=== PATIENT | female | born 1990 | race Two or more races ===

== ENCOUNTER 2019-09-21 03:35 | Observation (INO) | payer OTHER ==
[~2019-09-21] VITALS: Ht 152.4 cm; Wt 81.2 kg
[~2019-09-21 03:35] MED LIST: PNV1TABL43 PO
[2019-09-21 04:45] VITALS: BP 117/71
== END 2019-09-21 05:15 | disposition home or self-care (01) ==
LOC: EMS 03:36 → 4S 03:53 → INTOOBSV 03:53 → 4S 05:00
PROVIDERS: ADMIT Obstetrics & Gynecology; ATTEND Obstetrics & Gynecology
DX: O26.893 Other specified pregnancy related conditions, third trimester (principal); R10.9 Unspecified abdominal pain; Z3A.23 23 weeks gestation of pregnancy
CPT/HCPCS: 80307 ×8; 81002; G0378

== ENCOUNTER 2020-02-08 19:32 | Emergency (ER) | payer OTHER ==
[~2020-02-08] VITALS: Ht 180.3 cm; Wt 72.7 kg
[2020-02-08 22:35] LABS: BASOPHILS % (AUTO) 0.3 % (0.0-2.0); EOSINOPHILS % (AUTO) 0.4 % (1.0-6.0); HEMOGLOBIN 10.8 g/dL (12.0-16.0); LYMPHOCYTES # (AUTO) 1.4 K/uL (1.0-4.8); LYMPHOCYTES % (AUTO) 10.4 % (22.0-44.0); MEAN CORPUSCULAR HEMOGLOBIN 25.7 pg (26.0-34.0); MEAN CORPUSCULAR VOLUME 83 fL (80-100); MONOCYTES # (AUTO) 0.4 K/uL (0.1-1.0); MONOCYTES % (AUTO) 3.3 % (2.0-9.0); NEUTROPHILS # (AUTO) 11.5 K/uL (1.8-7.7); PLATELET COUNT (AUTO) 253 K/uL (150-450); RED BLOOD CELL COUNT(AUTO) 4.23 MIL/uL (4.00-5.20)
[2020-02-08 22:40] LABS: NEUTROPHILS % (AUTO) 85.6 % (40.0-70.0)
[2020-02-08 22:51] LABS: ANION GAP 8 mmol/L (8-16); CALCIUM, TOTAL 8.4 mg/dL (8.8-10.5); CARBON DIOXIDE 29 mmol/L (22-29); CHLORIDE 105 mmol/L (98-107); CREATININE 0.65 mg/dL (0.60-1.30); GLOMERULAR FILTR. RATE CALC > 60 mL/min (>60); GLUCOSE,RANDOM 105 mg/dL (70-110); POTASSIUM 3.8 mmol/L (3.5-5.1); SODIUM SERUM 142 mmol/L (136-145); UREA NITROGEN, BLOOD 17 mg/dL (7-18)
[2020-02-08 22:55] LABS: ALANINE AMINOTRANSFERASE 35 U/L (12-78); ALBUMIN 3.5 g/dL (3.4-5.0); ALKALINE PHOSPHATASE 102 U/L (46-116); ASPARTATE AMINOTRANSFERASE 51 U/L (15-37); BILIRUBIN,TOTAL 0.3 mg/dL (0.1-1.0); LIPASE 161 U/L (73-393); TOTAL PROTEIN, SERUM 7.4 g/dL (6.4-8.2)
[2020-02-08 23:46] VITALS: BP 127/62
== END 2020-02-08 23:47 | disposition home or self-care (01) ==
LOC: EMS 19:33
DX: R07.89 Other chest pain (principal); R05 Cough; R19.7 Diarrhea, unspecified
CPT/HCPCS: 93005

== ENCOUNTER 2025-05-13 17:52 | Emergency (ER) | payer OTHER ==
[~2025-05-13] VITALS: Ht 157.5 cm; Wt 75.0 kg
[2025-05-13 17:59] VITALS: TEMP 98.1
[2025-05-13 18:23] LABS: APPEARANCE,URINE CLEAR (CLEAR); BILIRUBIN,URINE NEGATIVE (NEGATIVE); COLOR,URINE YELLOW (YELLOW); GLUCOSE, URINE (UA) NEGATIVE (NEGATIVE); KETONES,URINE NEGATIVE (NEGATIVE); LEUKOCYTE ESTERASE ,URINE SMALL (NEGATIVE); NITRATE,URINE NEGATIVE (NEGATIVE); OCCULT BLOOD,URINE TRACE (NEGATIVE); PROTEIN,URINE NEGATIVE (NEGATIVE); UROBILINOGEN,URINE <=1.0 mg/dL (<=1.0)
[2025-05-13 18:24] LABS: BASOPHILS % (AUTO) 0.1 % (0.0-2.0); EOSINOPHILS % (AUTO) 0.3 % (1.0-6.0); HEMATOCRIT 40.2 % (36-46); HEMOGLOBIN 13.6 g/dL (12.0-16.0); LYMPHOCYTES # (AUTO) 0.5 K/uL (1.0-4.8); LYMPHOCYTES % (AUTO) 5.6 % (22.0-44.0); MEAN CORPUSCULAR HGB CONC 33.9 G/dL (31.0-37.0); MEAN CORPUSCULAR VOLUME 89 fL (80-100); MONOCYTES # (AUTO) 0.4 K/uL (0.1-1.0); MONOCYTES % (AUTO) 4.3 % (2.0-9.0); NEUTROPHILS # (AUTO) 8.4 K/uL (1.8-7.7); PLATELET COUNT (AUTO) 208 K/uL (150-450); RED BLOOD CELL COUNT(AUTO) 4.53 MIL/uL (4.00-5.20); RED CELL DISTRIBUTION WIDTH 13.7 % (11.5-14.5); WHITE BLOOD COUNT (AUTO) 9.3 K/uL (4.5-11.0)
[2025-05-13 18:30] LABS: NEUTROPHILS % (AUTO) 89.7 % (40.0-70.0)
[2025-05-13 18:31] LABS: ANION GAP 4 mmol/L (8-16); CALCIUM, TOTAL 8.3 mg/dL (8.8-10.5); CARBON DIOXIDE 28 mmol/L (22-29); CHLORIDE 105 mmol/L (98-107); CREATININE 0.64 mg/dL (0.60-1.30); GLOMERULAR FILTR. RATE CALC > 60 mL/min (>60); GLUCOSE,RANDOM 97 mg/dL (70-110); POTASSIUM 3.8 mmol/L (3.5-5.1); SODIUM SERUM 137 mmol/L (136-145); UREA NITROGEN, BLOOD 12 mg/dL (7-18)
[2025-05-13 18:41] LABS: BACTERIA,URINE Few /HPF (None Seen); RBC,URINE 0-2 /HPF (0-2); SQUAMOUS EPITHELIAL CELL,UR Few /LPF (None Seen)
[2025-05-13 18:42] LABS: MUCUS,URINE Few LPF (None Seen)
[2025-05-13 18:46] LABS: HCG,QUANTITATIVE < 1 mIU/mL (0-6); LIPASE 28 U/L (16-77)
[2025-05-13 23:18] LABS: ALBUMIN 3.5 g/dL (3.4-5.0); BILIRUBIN,DIRECT 0.1 mg/dL (0.00-0.20); BILIRUBIN,TOTAL 0.6 mg/dL (0.1-1.0)
[2025-05-13] MEDS: ACETAMINOPHEN 500 MG TABLET PO ONE (23:27)
[2025-05-13] MEDS: DICYCLOMINE HCL 10 MG CAPSULE PO ONE (23:27)
[2025-05-13] MEDS: FAMOTIDINE 20 MG TABLET PO ONE (23:27)
[2025-05-14 01:19] VITALS: BP 125/62; PULSE 94; RESP 17; O2SAT 99
== END 2025-05-14 01:24 | disposition home or self-care (01) ==
LOC: EMS 17:52
DX: R10.10 Upper abdominal pain, unspecified (principal); G89.29 Other chronic pain; R51.9 Headache, unspecified; R19.7 Diarrhea, unspecified; R11.2 Nausea with vomiting, unspecified; Z90.49 Acquired absence of other specified parts of digestive tract
CPT/HCPCS: 80048; 80076; 81001; 83690; 84702; 85025; 99284